=== PATIENT | male | born 1955 | race Caucasian/White ===

== ENCOUNTER 2019-08-03 03:43 | Emergency (ER) | payer OTHER ==
[~2019-08-03] VITALS: Ht 182.9 cm; Wt 65.0 kg
--- NOTE | 2019-08-03 04:07 | NUR ---
PT TO ED WITH C/O "GALLBLADDER PAIN", REPORTS RECEIVING DX FOR GALLSTONES X3 WEEKS AGO, DID NOT FOLLOW UP WITH GENERAL SURGERY. PT REPORTS INCREASED PAIN TODAY. DENIES N/V/D OR ANY OTHER C/O AT THIS TIME. MONITORING APPLIED, CALL LIGHT WITHIN REACH, ALL SAFETY MEASURES IN PLACE. ERP IN ROOM TO EVAL PT. LAB IN ROOM AT THIS TIME.
[2019-08-03] MEDS ORDERED: ONDANSETRON 2MG/ML, 2ML ONE (04:12)
[2019-08-03] MEDS ORDERED: MORPHINE SULFATE 4 MG/ML, 1ML ONE (04:12)
[2019-08-03 04:28] LABS: BASOPHILS # (AUTO) 0.01 x10^3/uL (0-0.1); BASOPHILS % (AUTO) 0 % (0-1); EOSINOPHILS # (AUTO) 0.02 x10^3/uL (0-0.4); EOSINOPHILS % (AUTO) 0 % (1-7); LYMPHOCYTES # (AUTO) 0.89 x10^3/uL (1-3.4); LYMPHOCYTES % (AUTO) 12 % (22-44); MD NO; MEAN CORPUSCULAR HEMOGLOBIN 33.3 pg (27.5-34.5); MEAN CORPUSCULAR HGB CONC 33.9 g/dL (33.2-36.2); MEAN CORPUSCULAR VOLUME 98.2 fL (81-97); MEAN PLATELET VOLUME 6.4 fL (7.4-10.4); MONOCYTES # (AUTO) 1.27 x10^3/uL (0.2-0.8); MONOCYTES % (AUTO) 16 % (2-9); NEUTROPHILS # (AUTO) 5.53 x10^3/uL (1.8-6.8); NEUTROPHILS % (AUTO) 72 % (42-75); PLATELET COUNT 293 x10^3/uL (130-400); RED BLOOD COUNT 4.02 x10^6/uL (4.38-5.82); RED CELL DISTRIBUTION WIDTH 16.4 % (9.4-14.8)
[2019-08-03] MEDS ORDERED: ONDANSETRON 2MG/ML, 2ML IVPush ONE (04:30)
[2019-08-03] MEDS ORDERED: MORPHINE SULFATE 4 MG/ML, 1ML IVPush PRN (04:30)
[2019-08-03 04:40] LABS: ALANINE AMINOTRANSFERASE 114 U/L (12-78); ALBUMIN 3.4 g/dL (3.4-5.0); ANION GAP 8 mmol/L (5-15); CALCIUM 9.2 mg/dL (8.5-10.1); CHLORIDE 96 mmol/L (98-107); CREATININE 1.19 mg/dL (0.7-1.3)
[2019-08-03 04:42] LABS: ALKALINE PHOSPHATASE 126 U/L (45-117); BILIRUBIN,TOTAL 0.9 mg/dL (0.2-1.0); TOTAL PROTEIN 6.7 g/dL (6.4-8.2)
--- NOTE | 2019-08-03 04:45 | NUR ---
PT ABLE TO AMBULATE TO AND FROM BATHROOM WITH STEADY GAIT WITH STANDBY ASSIST.
--- NOTE | 2019-08-03 04:46 | NUR ---
PT UNABLE TO PROVIDE UA AT THIS TIME.
--- NOTE | 2019-08-03 04:51 | NUR ---
PT TO IMAGING AT THIS TIME.
--- NOTE | 2019-08-03 04:53 | NUR ---
medical records requested from Aleah @[email or web address]
--- NOTE | 2019-08-03 05:02 | NUR ---
Aleah advised [place] that patient has not been seen at [facility]. MT called [facility]. Patient did visit [facility] 06/28/2019. Records requested from visit.
[2019-08-03] MEDS ORDERED: OMNIPAQUE 350 MG/ML, 100ML BOTTLE ONE (05:03)
--- NOTE | 2019-08-03 05:52 | NUR ---
REPORT GIVEN TO ESTEFANIA Diana RN.
--- NOTE | 2019-08-03 05:58 | NUR ---
REPORT RECEIVED FROM HINA ROMERO
--- NOTE | 2019-08-03 06:07 | NUR ---
PATIENT AMBULATORY IN ROOM TO USE URINAL
[2019-08-03] MEDS ORDERED: SODIUM CHLORIDE 0.9% 1,000ML IVBOLUS ONE (06:30)
--- NOTE | 2019-08-03 06:37 | NUR ---
PATIENT UNABLE TO PRODUCE URINE, IVF STARTED PER MD ARUNA ORDERS
[2019-08-03] MEDS ORDERED: CLON1TAB23 PO (06:44)
[2019-08-03] MEDS ORDERED: GABA300C10 PO (06:44)
--- NOTE | 2019-08-03 06:59 | NUR ---
Bedside report received from Meenu RN, pt care transferred at this time. Pt resting in gurney, call light within reach, even and unlabored respirations, NAD, eyes open, denies additional needs at this time.
--- NOTE | 2019-08-03 06:59 | NUR ---
REPORT GIVEN TO HINA BENOIT. PLAN OF CARE DISCUSSED
[2019-08-03 07:30] VITALS: BP 156/93
== END 2019-08-03 07:32 | disposition home or self-care (01) ==
LOC: ED 04:22
DX: A09 Infectious gastroenteritis and colitis, unspecified (principal); R10.32 Left lower quadrant pain; F17.200 Nicotine dependence, unspecified, uncomplicated
CPT/HCPCS: 36415; 74177; 80053; 80307; 83690; 85025; 96374; 96375; 99285; J2270; J2405; J7030; Q9967